=== PATIENT | male | born 1960 | race Caucasian/White ===

== ENCOUNTER → 2016-07-29 16:05 | Outpatient (CLI) | payer BC | END | disposition home or self-care (01) | LOC: D.RAD 16:05 | DX: R59.1 Generalized enlarged lymph nodes (principal) ==

== ENCOUNTER 2018-10-13 09:00 | Day surgery (SDC) | payer BC ==
[~2018-10-13 09:00] MED LIST: DOK100 MG PO; METAMUCIL PO
[2018-10-13 10:41] VITALS: BP 124/69; BMI 34.6
[2018-10-13] MEDS ORDERED: HYDROCODON-ACE1 EAC7 PO (13:47)
--- NOTE | 2018-10-13 14:50 | NUR ---
REC'D FROM RR. FAMILY AT BEDSIDE. DRESSINGS CDI TO ABDOMEN. COFFEE AND FL TRAY BROUGHT TO PT.
--- NOTE | 2018-10-13 15:20 | NUR ---
DROWSY. EASILY AROUSED. HAD NOT REALLY EATEN D/T SLEEPING.
--- NOTE | 2018-10-13 15:50 | NUR ---
CONTINUES TO BE DROWSY. AROUSES TO VERBAL STIMULI. FAMILY AT BEDSIDE. NO URGE TO VOID PER PT REPORT.
--- NOTE | 2018-10-13 16:50 | NUR ---
AWAKE. STILL NO URGE TO VOID. DRINKING WATER AT THIS TIME. FAMILY AT BEDSIDE.
--- NOTE | 2018-10-13 17:00 | NUR ---
PT UP TO BATHROOM AND VOIDED WITHOUT DIFFICULTY. IV DC'D WITH CATHETER INTACT.
--- NOTE | 2018-10-13 17:10 | NUR ---
WRITTEN AND VERBAL DC INST. GIVEN TO PT. VERBALIZED UNDERSTANDING.
--- NOTE | 2018-10-13 17:23 | NUR ---
DC'D HOME WITH FAMILY VIA PRIVATE VEHICLE. TAKEN TO VEHICLE VIA WC. STABLE AT TIME OF DC.
== END 2018-10-13 17:23 | disposition home or self-care (01) ==
LOC: D.OPS 09:00
PROVIDERS: ATTEND Surgery
DX: K43.9 Ventral hernia without obstruction or gangrene (principal); Z01.812 Encounter for preprocedural laboratory examination

== ENCOUNTER 2019-03-14 08:11 | Day surgery (SDC) | payer BC ==
[~2019-03-14] VITALS: Ht 175.3 cm; Wt 105.2 kg
[~2019-03-14 08:11] MED LIST changes: +HYDROCODON-ACE1 EAC7 PO
[2019-03-14 08:36] LABS: HEMOGLOBIN 16.6 g/dL (13.5-17.5); MCH 29.4 pg (26.0-34.0); MCHC 33.9 g/dL (31.0-37.0); MCV 86.9 fL (80.0-100.0); MEAN PLATELET VOLUME 10.4 fL (7.4-10.4); RBC 5.64 10x6/uL (4.20-6.10); RDW 14.1 % (11.5-14.5); WBC 9.4 10x3/uL (4.8-10.8)
[2019-03-14 08:47] LABS: ANION GAP 11.5 mmol/L (8-16); CALCIUM 8.9 mg/dL (8.5-10.1); CARBON DIOXIDE 27.3 mmol/L (21.0-32.0); CREATININE - SERUM 1.2 mg/dL (0.6-1.3); POTASSIUM - SERUM 3.8 mmol/L (3.5-5.1)
[2019-03-14 09:26] VITALS: BP 124/75; Ht 175.3 cm; Wt 105.2 kg
[2019-03-14] MEDS ORDERED: HYDROCODON-ACE1 EAC7 PO (13:32)
[2019-03-14] MEDS ORDERED: CYCLOBENZAPRINE10 MG PO (13:32)
[2019-03-14] MEDS ORDERED: MIRALAX17 GM PO (13:32)
--- NOTE | 2019-03-14 14:11 | NUR ---
1410 WAYNE AND TAE PHONED INTO [employer] ON CENTRAL PER PT'S REQUEST.
== END 2019-03-14 15:10 | disposition home or self-care (01) ==
LOC: D.OPS 08:11
PROVIDERS: Anesthesiology; ATTEND Surgery
DX: K64.9 Unspecified hemorrhoids (principal); Z12.11 Encounter for screening for malignant neoplasm of colon